=== PATIENT | female | born 1975 | race Caucasian/White ===

== ENCOUNTER 2016-12-07 21:08 | Emergency (ER) | payer OTHER ==
[~2016-12-07] VITALS: Ht 152.4 cm; Wt 75.3 kg
[~2016-12-07 21:08] MED LIST: AZITHROMYCIN500 M1 PO; CEFTIN500 MG PO; CYTOTEC200 MCG PO; METFORMIN HCL500 MG PO; NEURONTIN300 MG PO; PHENERGAN25 MG PR; ULTRAM50 MG PO; VOLTAREN50 MG PO; ZOFRAN ODT4 MG PO
[2016-12-07] MEDS ORDERED: LISINOPRIL5 MG PO (21:37)
[2016-12-07] MEDS ORDERED: METRONIDAZOLE500 MG PO (21:37)
[2016-12-07 22:56] LABS: ADD MIUA? NO; BILIRUBIN NEGATIVE; BLOOD NEGATIVE; COLOR YELLOW ((YELLOW)); GLUCOSE (STRIP) NEGATIVE; KETONES NEGATIVE; LEUKOCYTES NEGATIVE; NITRITE NEGATIVE; PH, URINE 7.5 (5-8); PROTEIN (STRIP) NEGATIVE; SPECIFIC GRAVITY 1.023 (1.000-1.030); UCUL ADDED? NO; UROBILINOGEN 0.2 MG/DL (0.2-1.0)
[2016-12-08] MEDS ORDERED: NORCO 5/3251 TABLET PO (00:16)
[2016-12-08 00:43] VITALS: BP 127/69
== END 2016-12-08 00:56 | disposition home or self-care (01) ==
LOC: RME 21:08 → EME 21:08 → RME 12-08 00:56
PROVIDERS: Physician Assistant
DX: S22.089A Unspecified fracture of T11-T12 vertebra, initial encounter for closed fracture (principal); M54.5 Low back pain; W10.9XXA Fall (on) (from) unspecified stairs and steps, initial encounter; Y92.008 Other place in unspecified non-institutional (private) residence as the place of occurrence of the external cause; R32 Unspecified urinary incontinence; R11.10 Vomiting, unspecified
CPT/HCPCS: 72100; 72128; 72131; 81003; 84702; 99281; 99284

== ENCOUNTER 2017-03-28 19:30 | Emergency (ER) | payer BC ==
[~2017-03-28] VITALS: Ht 149.9 cm; Wt 77.2 kg
[~2017-03-28 19:30] MED LIST changes: +LISINOPRIL5 MG PO; +METRONIDAZOLE500 MG PO; +NORCO 5/3251 TABLET PO
[2017-03-28 20:11] LABS: POINT-OF-CARE METER ID UU13113778; POINT-OF-CARE USER ID NUTMMM10
[2017-03-28] MEDS ORDERED: ZITHROMAX250 MG PO (20:51)
[2017-03-28] MEDS ORDERED: PREDNISONE20 MG PO (20:51)
[2017-03-28 21:22] VITALS: BP 127/88
== END 2017-03-28 21:33 | disposition home or self-care (01) ==
LOC: EME 19:30
PROVIDERS: Physician Assistant
DX: J40 Bronchitis, not specified as acute or chronic (principal); I10 Essential (primary) hypertension
CPT/HCPCS: 71020; 82948; 93005; 99281; 99284; J1885; J7512